=== PATIENT | male | born 1980 | race African-American/Black ===

== ENCOUNTER 2024-09-10 13:02 | Emergency (ER) | payer BC ==
[~2024-09-10] VITALS: Ht 167.6 cm; Wt 125.3 kg
[~2024-09-10 13:02] MED LIST: AUGMENTIN 500-1 EACH PO; FAMOTIDINE20 MG PO; LOSARTAN-HCTZ1 EACH PO; MELOXICAM7.5 MG PO; PANTOPRAZOLE SO40 MG PO; TRIAMTERENE-HCTZ1 EA PO
[2024-09-10 13:05] VITALS: PULSE 88; RESP 20; TEMP 98
[2024-09-10] MEDS ORDERED: LOSARTAN POTASS25 MG PO (13:19)
[2024-09-10] MEDS ORDERED: AZITHROMYCIN250 MG PO (13:24)
[2024-09-10] MEDS ORDERED: BENZONATATE100 MG PO (13:25)
[2024-09-10 13:34] VITALS: BP 135/81; PULSE 75; RESP 20; TEMP 98; O2SAT 96
== END 2024-09-10 13:35 | disposition home or self-care (01) ==
LOC: FSED 13:05
DX: R50.9 Fever, unspecified (principal); J20.9 Acute bronchitis, unspecified; R05.9 Cough, unspecified; I10 Essential (primary) hypertension; E66.01 Morbid (severe) obesity due to excess calories
CPT/HCPCS: 99284

== ENCOUNTER 2025-05-11 08:28 | Emergency (ER) | payer BC ==
[~2025-05-11] VITALS: Ht 172.7 cm; Wt 123.1 kg
[~2025-05-11 08:28] MED LIST changes: +AZITHROMYCIN250 MG PO; +BENZONATATE100 MG PO; +LOSARTAN POTASS25 MG PO
[2025-05-11 08:31] VITALS: TEMP 97.8
[2025-05-11] MEDS ORDERED: VENTOLIN HFA18 GM INH (08:39)
[2025-05-11] MEDS ORDERED: LOSARTAN POTAS100 MG PO (08:39)
[2025-05-11] MEDS ORDERED: ALBUTEROL/IPRATROPIUM 3 ML NEB ONE (08:45)
[2025-05-11] MEDS: ALBUTEROL/IPRATROPIUM 3 ML NEB NEB ONE ×2 (09:05→09:57)
[2025-05-11] MEDS ORDERED: AZITHROMYCIN250 MG PO (09:21)
[2025-05-11] MEDS ORDERED: MONTELUKAST SOD10 MG PO (09:21)
[2025-05-11] MEDS ORDERED: CORICIDIN HBP1 EAC1 PO (09:21)
[2025-05-11] MEDS ORDERED: EASY NEB COMPR1 EACH (09:21)
[2025-05-11] MEDS ORDERED: IPRAT-ALBUT 0.5-3 ML NEB (09:21)
[2025-05-11] MEDS: FUROSEMIDE INJ 10 MG/ML 4 ML VIAL IV ONE (09:36)
[2025-05-11] MEDS: ACETAMINOPHEN 325 MG TAB PO ONE (09:36)
[2025-05-11 09:37] VITALS: BP 144/89
[2025-05-11] MEDS: NITROGLYCERIN 2% OINT 1 GM PKT TOP ONE (09:37)
[2025-05-11] MEDS: METHYLPREDNISOLONE SOD SUCC 40 MG/ML VIAL 1ML IV ONE (09:51)
[2025-05-11 09:58] VITALS: PULSE 71; RESP 18
[2025-05-11 10:12] VITALS: PULSE 69; RESP 18; O2SAT 96
== END 2025-05-11 10:06 | disposition home or self-care (01) ==
LOC: FSED 08:32
DX: R06.02 Shortness of breath (principal); I16.0 Hypertensive urgency; J40 Bronchitis, not specified as acute or chronic; R05.9 Cough, unspecified; R91.8 Other nonspecific abnormal finding of lung field; I10 Essential (primary) hypertension; E66.01 Morbid (severe) obesity due to excess calories; R94.31 Abnormal electrocardiogram [ECG] [EKG]; Z87.19 Personal history of other diseases of the digestive system
CPT/HCPCS: 71250; 80053; 83880; 84484; 85025; 93005; 94760; 96374; 99284; J2919